=== PATIENT | female | born 1970 | race Hispanic/Latino ===

== ENCOUNTER → 2018-08-10 | Outpatient (CLI) | payer BC ==
--- NOTE | 2018-08-10 10:15 | Diagnostic Imaging Report ---
EXAMINATION: MRI of the lumbar spine without contrast HISTORY: Low back pain radiating to the bilateral lower extremities with numbness, worsening for last 2 weeks after heavy lifting. COMPARISON: None. TECHNIQUE: Sagittal T1, T2, STIR; axial T2 and proton density. FINDINGS: It is assumed that there are 5 lumbar vertebrae. Curvature/Alignment: Mild straightening of the lumbar lordosis, which may be related to muscle spasm or positional. Vertebrae: No evidence of recent fracture, infection, or neoplasm. Shallow Schmorl nodes in the inferior endplate of L1 and superior endplate of L4. Benign hemangiomas in the L2 and L4 vertebral bodies. Conus: Normal, terminating at T12-L1 Cauda equina: Unremarkable. Lower thoracic: Unremarkable. Paraspinal soft tissues: Partially visualized focal areas of scarring in the left greater than right kidney, perhaps sequela from remote inflammatory/infectious processes, possible cyst in the left kidney Degenerative changes: L1-L2: Unremarkable. L2-L3: Unremarkable. L3-L4: Minimal symmetrical bulge of facet arthrosis. No canal or foraminal stenoses L4-L5: Decreased T2 signal intensity, minimal symmetric disc bulge and mild facet arthrosis. Very minimal associated anterolisthesis. No canal or foraminal stenoses. L5-S1: Decreased T2 signal intensity, minimal symmetric disc bulge and facet hypertrophy. No canal or foraminal stenoses. Sacroiliac joints: Mild degenerative changes mainly on the right. IMPRESSION: 1. Mild degenerative changes from L3-L4 to L5-S1 without spinal canal or foraminal stenosis. 2. Mild degenerative changes of the partially visualized sacroiliac joints. 3. Focal areas of scarring in the left kidney, a renal ultrasound is recommended if not previously evaluated. Signed by: Dr. Viry Omer M.D. on 08/10/2018 10:12 AM
== END ==
LOC: MRI 06:30
PROVIDERS: ATTEND Physical Medicine & Rehabilitation Pain Medicine
DX: M54.16 Radiculopathy, lumbar region (principal)
CPT/HCPCS: 72148

== ENCOUNTER → 2018-08-13 | Day surgery (SDC) | payer BC ==
[~2018-08-13] MED LIST: DEXAMETHASONE SOD PHOS 10 MG/1 ML VIAL ONE; FENTANYL CITRATE/PF 100MCG/2 ML INJ ONE; IOPAMIDOL 200 MG/ML 20 ML VIAL IT ONE; LIDOCAINE HCL 1% 30ML-PF VIAL ONE; LIDOCAINE HCL 2% LOCAL INJ 5 ML SDV VIAL INJ ONE; MEDROL4 MG PO; MIDAZOLAM HCL 2 MG/2 ML VIAL ONE; MOBIC15 MG PO; PROPOFOL IV EMULSION 10 MG/ML 20 ML VIAL ONE
--- OUTSIDE RECORDS SUMMARY | 2018-08-13 05:40 | XMS REPORT ---
[email or web address] Address Unknown Phone Unavailable Care Team Providers Care Aerophysics Engineer Name Role Phone Vicky CARBAJAL Unavailable Unavailable Problems This patient has no known problems. Allergies, Adverse Reactions, Alerts This patient has no known allergies or adverse reactions. Medications This patient has no known medications. Results Test Description Test Time Test Comments Text Results Atomic Results Result Comments MRI SPINE LUMBAR WO 2018-08-10 10:05:00 [place] [address] Patient Name: DARIEN HIGGINS MR #: [id number] : 1970 Age/Sex: 47/F Req #: [id number] Adm Physician: Ordered by: JUS CARBAJAL MD Report #: [id number] Location: MRI Room/Bed: Procedure: [id number] MRI/MRI SPINE LUMBAR WO Exam Date: Exam Time: REPORT STATUS: Signed EXAMINATION: MRI of the lumbar spine without contrast HISTORY: Low back pain radiating to the bilateral lower extremities with numbness, worsening for last 2 weeks after heavy lifting. COMPARISON: None. TECHNIQUE: Sagittal T1, T2, STIR; axial T2 and proton density. FINDINGS: It is assumed that there are 5 lumbar vertebrae. Curvature/Alignment: Mild straightening of the lumbar lordosis, which may be related to muscle spasm or positional. Vertebrae: No evidence of recent fracture, infection, or neoplasm. Shallow Schmorl nodes in the inferior endplate of L1 and superior endplate of L4. Benign hemangiomas in the L2 and L4 vertebral bodies. Conus: Normal, terminating at T12-L1 Cauda equina: Unremarkable. Lower thoracic: Unremarkable. Paraspinal soft tissues: Partially visualized focal areas of scarring in the left greater than right kidney, perhaps sequela from remote inflammatory/infectious processes, possible cyst in the left kidney Degenerative changes: L1-L2: Unremarkable. L2-L3: Unremarkable. L3-L4: Minimal symmetrical bulge of facet arthrosis. No canal or foraminal stenoses L4-L5: Decreased T2 signal intensity, minimal symmetric disc bulge and mild facet arthrosis. Very minimal associated anterolisthesis. No canal or foraminal stenoses. L5-S1: Decreased T2 signal intensity, minimal symmetric disc bulge and facet hypertr ophy. No canal or foraminal stenoses. Sacroiliac joints: Mild degenerative changes mainly on the right. IMPRESSION: 1. Mild degenerative changes from L3-L4 to L5-S1 without spinal canal or foraminal stenosis. 2. Mild degenerative changes of the partially visualized sacroiliac joints. 3. Focal areas of scarring in the left kidney, a renal ultrasound is recommended if not previously evaluated. Signed by: Dr. Aby Omer M.D. on 08/10/2018 10:12 AM Dictated By: ABY OMER MD [id number] Transcribed By: KRISS HARRIS on 08/10/18 1012 COPY TO: JUS CARBAJAL MD
[2018-08-13 09:00] VITALS: BP 104/71
== END | disposition home or self-care (01) ==
LOC: OR 05:33
PROVIDERS: ATTEND Physical Medicine & Rehabilitation Pain Medicine
DX: M54.16 Radiculopathy, lumbar region (principal)
CPT/HCPCS: 64483; 64484; J1100; J2001 ×2; J2250; J2704; Q9967; 77003; J3010

== ENCOUNTER 2019-04-05 06:47 | Emergency (ER) | payer BC ==
[~2019-04-05] VITALS: Ht 162.6 cm; Wt 511.7 kg
[~2019-04-05 06:47] MED LIST changes: -DEXAMETHASONE SOD PHOS 10 MG/1 ML VIAL ONE; -FENTANYL CITRATE/PF 100MCG/2 ML INJ ONE; -IOPAMIDOL 200 MG/ML 20 ML VIAL IT ONE; -LIDOCAINE HCL 1% 30ML-PF VIAL ONE; -LIDOCAINE HCL 2% LOCAL INJ 5 ML SDV VIAL INJ ONE; -MIDAZOLAM HCL 2 MG/2 ML VIAL ONE; -PROPOFOL IV EMULSION 10 MG/ML 20 ML VIAL ONE
--- OUTSIDE RECORDS SUMMARY | 2019-04-05 06:50 | XMS REPORT ---
[facility] Address Unknown Phone Unavailable Care Team Providers Care Flange Turner Name Role Phone Vicky CARBAJAL Unavailable Unavailable Problems This patient has no known problems. Allergies, Adverse Reactions, Alerts This patient has no known allergies or adverse reactions. Medications This patient has no known medications. Results Test Description Test Time Test Comments Text Results Atomic Results Result Comments MRI SPINE LUMBAR WO 2018-08-10 10:05:00 [place] [address] Patient Name: DARIEN HIGGINS MR #: [id number] : 1970 Age/Sex: 47/F Req #: [id number] Adm Physician: Ordered by: JUS CARBAJAL MD Report #: [id number] Location: MRI Room/Bed: Procedure: [id number] MRI/MRI SPINE LUMBAR WO Exam Date: Exam [...]
--- NOTE | 2019-04-05 08:50 | Diagnostic Imaging Report ---
Exam: Chest radiograph Clinical History: Fever Findings: The cardiomediastinal silhouette and lungs are normal. The regional skeleton and soft tissue are unremarkable. There is no evidence of pleural effusion or pneumothorax. Impression: No radiographic evidence of acute cardiopulmonary disease. Signed by: Dr. Ariel Guerra MD on 04/05/2019 8:47 AM
== END 2019-04-05 09:41 | disposition home or self-care (01) ==
LOC: ER 06:47
DX: R05 Cough (principal); J06.9 Acute upper respiratory infection, unspecified; J01.10 Acute frontal sinusitis, unspecified
CPT/HCPCS: 71046; 87400; 99283

== ENCOUNTER → 2020-10-26 | Outpatient (CLI) | payer OTHER ==
[~2020-10-26] MED LIST changes: +COVID-19 VAC,AD26(JANSSEN)/PF 2.5 ML VIAL IM ONE
== END ==
LOC: VACCPMC 12:59
DX: Z23 Encounter for immunization (principal); Z20.822 Contact with and (suspected) exposure to COVID-19
CPT/HCPCS: 91303